=== PATIENT | male | born 1945 | race Caucasian/White ===

== ENCOUNTER → 2024-06-25 10:44 | Outpatient (REF) | payer MEDICARE, OTHER, SELFPAY | LOC: RAD 10:44 | PROVIDERS: ATTENDING PHYSICIAN Surgery Vascular Surgery; FAMILY PHYSICIAN Internal Medicine | DX: I65.23 Occlusion and stenosis of bilateral carotid arteries (principal) | CPT/HCPCS: 93880 ==

== ENCOUNTER → 2024-12-29 08:45 | Outpatient (REF) | payer MEDICARE, OTHER, SELFPAY | LOC: RAD 08:45 | PROVIDERS: ATTENDING PHYSICIAN Registered Nurse | DX: I65.23 Occlusion and stenosis of bilateral carotid arteries (principal) | CPT/HCPCS: 93880 ==

== ENCOUNTER → 2025-06-29 08:41 | Outpatient (REF) | payer MEDICARE, OTHER, SELFPAY | LOC: RAD 08:41 | PROVIDERS: ATTENDING PHYSICIAN Registered Nurse; FAMILY PHYSICIAN Internal Medicine | DX: I65.23 Occlusion and stenosis of bilateral carotid arteries (principal) | CPT/HCPCS: 93880 ==